=== PATIENT | female | born 1985 | race Two or more races ===

== ENCOUNTER 2021-04-30 21:30 | Inpatient (IN) | payer OTHER, SELFPAY ==
[~2021-04-30] VITALS: Ht 152.4 cm; Wt 67.1 kg
[2021-04-30] MEDS ORDERED: LACTATED RINGERS 1,000 ML IV SCH (22:00)
[2021-04-30] MEDS ORDERED: CLINDAMYCIN 900 MG/6 ML VIAL IV ONE (22:16)
[2021-04-30] MEDS ORDERED: OXYTOCIN 20 UNITS in LACTATED RINGERS 1,000 ML IV SCH (22:25)
[2021-04-30] MEDS ORDERED: ROPIVACAINE 0.2%/NS PREMIX 200 ML EPI ONE (22:33)
[2021-04-30 22:45] LABS: BASOPHILS % (AUTO) 0.4 % (0.0-2.0); EOSINOPHILS % (AUTO) 0.4 % (0.0-4.0); HEMATOCRIT 36.7 % (36-48); HEMOGLOBIN 12.7 g/dL (12.0-16.0); LYMPHOCYTES # (AUTO) 1.7 K/uL (2.5-16.5); LYMPHOCYTES % (AUTO) 18.6 % (20.5-51.1); MEAN CORPUSCULAR HEMOGLOBIN 33 pg (27-31); MEAN CORPUSCULAR HGB CONC 35 g/dL (33-37); MEAN CORPUSCULAR VOLUME 95.7 fL (80-94); MONOCYTES # (AUTO) 0.7 K/uL (0.8-1.0); NEUTROPHILS # (AUTO) 6.7 K/uL (1.8-7.7); NEUTROPHILS % (AUTO) 72.6 % (42.2-75.2); PLATELET COUNT (AUTO) 185 K/uL (140-450); RED BLOOD CELL COUNT(AUTO) 3.83 MIL/uL (4.20-5.40); RED CELL DISTRIBUTION WIDTH 14.2 % (11.6-13.7); WHITE BLOOD COUNT (AUTO) 9.2 K/uL (4.8-10.8)
[2021-04-30 23:48] LABS: ALBUMIN 2.5 g/dL (3.4-5.0); ANION GAP 11.3 (8-16); CARBON DIOXIDE 23.9 mmol/L (21-32); CREATININE 0.6 mg/dL (0.6-1.3); POTASSIUM 3.2 mmol/L (3.5-5.1); TOTAL BILIRUBIN 0.2 mg/dL (0.0-1.0)
[2021-05-01] MEDS ORDERED: CLINDAMYCIN 900 MG in DEXTROSE 5% 100 ML IV SCH ×2
[2021-05-01] MEDS ORDERED: OXYTOCIN 20 UNITS/LR PREMIX 1,000 ML IV ONE (02:46)
[2021-05-01] MEDS ORDERED: HYDROcodone/APAP 5/325 MG 1 TAB TAB PO PRN (02:50)
[2021-05-01] MEDS ORDERED: METHYLERGONOVINE 0.2 MG/ML AMP IM PRN (02:50)
[2021-05-01] MEDS ORDERED: BENZOCAINE/MENTHOL 20%-0.5% 60 GM CAN TP PRN (02:50)
[2021-05-01] MEDS ORDERED: METHYLERGONOVINE 0.2 MG TAB PO PRN (02:50)
[2021-05-01] MEDS ORDERED: TEMAZEPAM 15 MG CAP PO PRN (02:50)
[2021-05-01] MEDS ORDERED: oxyCODONE/APAP 5/325 MG 1 TAB TAB PO PRN (02:50)
[2021-05-01] MEDS ORDERED: OXYTOCIN 10 UNITS/ML VIAL IM PRN (02:50)
[2021-05-01] MEDS: IBUPROFEN 800 MG TAB PO PRN ×2 (11:59→22:15)
[2021-05-01 18:40] LABS: RAPID PLASMA REAGIN NON-REACTIVE (Non Reactiv)
[2021-05-01] MEDS ORDERED: DOCUSATE SOD/SENNA 50/8.6 MG 1 TAB PO SCH (21:00)
[2021-05-02 06:07] LABS: HEMOGLOBIN 9.6 g/dL (12.0-16.0)
--- NOTE | 2021-05-02 08:45 | NUR ---
PATIENT HAS BEEN SCREENED AND CATEGORIZED LOW NUTRITION RISK. PATIENT WILL BE SEEN WITHIN 7 DAYS OF ADMISSION. 05/07/[address]
[2021-05-02] MEDS ORDERED: FERR325E14 PO (09:48)
[2021-05-02] MEDS ORDERED: IBUP-2213 PO (09:48)
== END 2021-05-02 10:30 | disposition home or self-care (01) | DRG 807 ==
LOC: MFCC 21:30 → OBSVTOIN 21:30 → MFCC 05-01 05:42
PROVIDERS: ADMIT Obstetrics & Gynecology; ATTEND Obstetrics & Gynecology
PROC: 10D07Z6 Extraction of Products of Conception, Vacuum, Via Natural or Artificial Opening (ICD-10-PCS; principal; 2021-05-01)
PROC: 0HQ9XZZ Repair Perineum Skin, External Approach (ICD-10-PCS; 2021-05-01)
DX: O70.0 First degree perineal laceration during delivery (principal); Z37.0 Single live birth; Z20.822 Contact with and (suspected) exposure to COVID-19; Z3A.39 39 weeks gestation of pregnancy; Z88.0 Allergy status to penicillin
CPT/HCPCS: 36415; 80053; 85018; 85025; 86592; 86762; 86886; 86900; 86901; 87340; 87653-90; J2590; J2795; J3490; J7060